=== PATIENT | male | born 2005 | race Hispanic/Latino ===

== ENCOUNTER 2024-10-08 21:25 | Emergency (ER) | payer BC ==
[~2024-10-08] VITALS: Ht 177.8 cm; Wt 90.7 kg
[2024-10-08 21:26] VITALS: TEMP 99.9
--- NOTE | 2024-10-08 21:28 | NUR ---
COVID, FLU AND STREP COLLECTED AND SENT
[2024-10-08 21:51] LABS: RAPID GROUP A STREP negative (NEGATIVE)
[2024-10-08 21:53] LABS: SARS-CoV-2, RNA, NAAT NEGATIVE SARS CoV-2 (NEGATIVE)
[2024-10-08 22:01] LABS: INFLUENZA TYPE A Negative For Type A (NEGATIVE); INFLUENZA TYPE B Negative For Type B (NEGATIVE)
[2024-10-08] MEDS ORDERED: METH4TAB3 PO (23:22)
--- NOTE | 2024-10-08 23:22 | EKG ---
[facility] Test Date: 2024-10-08 Test Time: 23:17:28 Pat Name: SYED PEREZ Department: EDH Room: Gender: M Line Tester: [facility] : 2005 Requested By: WILMA ALVARADO Order Number: [id number] Reading MD: Sherman Dave Measurements Intervals [place] Rate: 109 P: 68 NE: 178 QRS: 26 QRSD: 84 T: 34 QT: 305 QTc: 412 Interpretive Statements Sinus tachycardia No previous ECG available for comparison Electronically Signed On 10-09-2024 13:59:34 CDT by Sherman Dave Please click the below link to view image of tracing.
--- NOTE | 2024-10-08 23:23 | ERN ---
General Chief Complaint: Flu Symptoms Stated Complaint: SORE THROAT, FEVER, BODYACHES Time Seen by MD: 21:30 Time Seen by Midlevel: 21:30 Source: patient History of Present Illness Initial Comments Patient is a 18-year-old male with no significant past medical history presenting to the emergency department for evaluation of flu-like symptoms that started yesterday afternoon. Symptoms consist of a sore throat, subjective fevers, generalized body aches, and nasal congestion. Allergies: Coded Allergies: No Known Allergies (Unverified Allergy, Unknown, 10/08/24) Past Medical History Past Medical History: No Pertinent History Past Surgical History: None ROS Dictation CONSTITUTIONAL: Negative except for HPI HEAD/FACE: Negative except for HPI EENT: Negative except for HPI RESPIRATORY: Negative except for HPI GASTROINTESTINAL/ABDOMINAL: Negative except for HPI GENITOURINARY: Negative except for HPI MUSCULOSKELETAL: Negative except for HPI INTEGUMENTARY: Negative except for HPI NEUROLOGICAL/PSYCH: Negative except for HPI HEMATOLOGIC/LYMPHATIC: Negative except for HPI All Systems Negative, Except as noted above. 13 point review of systems assessed and all negative except for above. Physical Exam Physical Exam Dictation Vital Signs reviewed General Appearance: Alert, oriented x 3, no acute distress, well developed, nourished. Head and Face: non-traumatic. Eyes: PERRL, pink conjunctivas, eyelid no trauma, anterior chamber with arcus senilis. Ears: Pinnas intact and no signs of trauma or erythema ear canals clear and no discharge TM no erythema Nose: No discharge, no bleeding. Oropharynx: Mouth normal, tongue pink, pharynx clear,no erythema, tonsils no exudates, no abscesses noted, mucous membrane moist Neck: Supple, non-tender, no thyromegaly, no masses, no JVD, no bruits Breast:Deferred Chest:No tenderness, no crepitus, no paradoxical movement, no retractions Lungs:Clear, well-ventilated, symmetric, no rales, no wheezing, no rhonchi, no stridor, good breath sounds bilaterally Heart: Regular rate, regular rhythm, no murmur, no gallops Vascular: no peripheral edema, Abdomen: Soft, positive bowel sounds, nondistended, no guarding, nontender, no rebound, no masses no hepatomegaly, no splenomegaly, no Riojas's sign, no hernias. Rectal: Deferred Genital: Deferred Neurological: Normal speech, motor function intact, sensory function intact Musculoskeletal: Neck nontender, full range of motion, back nontender, full range of motion, Extremities: nontender, full range of motion Skin: Color pink, dry, no turgor, no rash, no lacerations, no abrasions, no contusions. Lymphatic: Deferred Results Laboratory and Microbiology Lab and Micro Result Laboratory Tests Test 10/08/24 21:28 Influenza Type A Antigen Negative For Type A Influenza Type B Antigen Negative For Type B SARS-CoV-2, RNA, NAAT NEGATIVE SARS CoV-2 Group A Streptococcus Rapid negative (NEGATIVE) Labs Reviewed?: Yes MDM MDM: 18-year-old with no significant past medical history presenting to the ER with flu-like symptoms. On physical examination the patient is in no acute distress. He has a low-grade fever in his slightly tachycardic. He is nontoxic appearing. The remainder of his physical examination is unremarkable. Respiratory swabs are negative. History and physical examination is consistent with a viral illness. We will discharged home with supportive management. Differential diagnosis: Strep pharyngitis, viral syndrome, upper respiratory infection There are no social concerns with this patient. Prescription drug management Prescriptions will include: Medrol pack Medical management and examination interpretation discussions were had by me with other qualified healthcare professionals as indicated for the patient's care. ED Course Orders Procedure Category Date Status Time Covid Rna Naat LAB 10/08/24 Complete 21:28 Influenza Type A & B, LAB 10/08/24 Complete Rapid 21:28 Rapid (Group A Strep) LAB 10/08/24 Complete 21:28 12 Lead Ekg Tracing- EKG 10/08/24 Logged Technical 23:16 Prednisone 10mg Tab PHA 10/08/24 Transmitted (Deltasone/Orasone 1 23:30 Vital Signs Date Time Temp Pulse Resp B/P (MAP) Pulse Ox O2 Delivery O2 Flow Rate FiO2 10/08/24 21:26 99.9 111 18 122/72 99 Room Air DX & DISP Disposition: Discharge Departure Impression: Primary Impression: Viral syndrome Condition: Stable Scripts Methylprednisolone (Medrol) 4 Mg Tab.ds.pk 1 TAB PO AD for 6 Days, #21 TAB 0 Refills 6 on day 1 then reduce by one tablet daily until gone Prov: WILMA ALVARADO 10/08/24 Additional Instructions: You have tested negative for influenza a, influenza B, COVID-19, and strep. Your symptoms are most likely related to a viral illness. If your symptoms persist for more than five days please report to the ER for further evaluation. Your EKG is normal. Referrals: SELF,REFERRAL (PCP) Time of Disposition: 23:21 I have reviewed the case, and I agree with, Diagnosis and Plan I performed the substantive portion of the visit. I have reviewed and personally made and approve the management plan that is documented in the note by myself or the DEMETRA. I acknowledge for responsibility for the patient's management plan. WILMA ALVARADO Oct 08, 2024 23:23
[2024-10-08 23:38] VITALS: BP 121/85; PULSE 110; RESP 16; O2SAT 98
== END 2024-10-08 23:46 | disposition home or self-care (01) ==
LOC: EDH 21:25
DX: B34.9 Viral infection, unspecified (principal); Z20.822 Contact with and (suspected) exposure to COVID-19
CPT/HCPCS: 99284; 87635; 87880; 87804 ×2; 93005; J7512; 99285